=== PATIENT | female | born 1950 | race Caucasian/White ===

== ENCOUNTER → 2017-10-28 | Outpatient (CLI) | payer OTHER ==
[~2017-10-28] VITALS: Ht 170.2 cm; Wt 90.7 kg
[~2017-10-28] MED LIST: ASPIR 8181 MG PO; SYNTHROID175 MCG PO; TOPROL XL25 MG PO; ZESTORETIC 20-1 EACH PO
--- NOTE | ~2017-10-28 | EKG ---
[address] [address] [email or web address] [address] ELECTROCARDIOGRAM REPORT Name: DAMIÁN TSANG Room #: [facility] [id number] Admission: 10/28/17 Attend Phys: Bjorn Velazquez MD, Discharge: Date of : 48 Report #: [id number] THIS REPORT FOR: //name// [facility] Test Date: 2017-10-28 Test Time: 07:28:13 Pat Name: DAMIÁN TSANG Department: Room: Gender: F Faith Healer: Sebas BOLDEN : 1950 Requested By: Bjorn Velazquez Order Number: [id number] MD: Wilmar Liu Measurements Intervals [place] Rate: 62 P: 68 ME: 167 QRS: 19 QRSD: 85 T: 65 QT: 436 QTc: 443 Interpretive Statements Sinus rhythm RSR' in V1 or V2, right VCD or RVH Minimal ST elevation, multiple leads No previous ECG available for comparison Electronically Signed On 10-28-2017 8:49:37 MANAGER GENERATION by Wilmar Liu [email or web address] <ELECTRONICALLY SIGNED> By: Wilmar Liu MD, [facility] 10/28/17 0849 7 7 Wilmar Liu MD, [facility] /EPI
--- NOTE | ~2017-10-28 | CATHLAB ---
[facility] [address] [place] [address] INVASIVE PROCEDURE REPORT Name: TRINHJALILCesar DUFFY Room #: REG Sary#: [id number] Admission: 10/28/17 Attend Phys: Bjorn Velazquez, Discharge: Date of : 48 Date of Service: 10/28/17 183 Report #: [id number] THIS REPORT FOR: //name// APPROVED REPORT Patient Details Patient Status: Out-Patient Room #: The patient is a 67 year-old female Event Personnel Bjorn Velazquez Motor And Generator Assembler, Rosanne Nelson, Maria Victoria Graham RTR, Garrett Diaz Ceola RN RN, Tracey Goddard RN receptionist doctor's office Performed Art Access - R femoral artery* Montrell Access - R femoral vein 87705 Initial Mod Sed Same Phys/QHP Gr5y 700195 Right and Left Heart Cath w/or w/o Coronarie [id number] RLHC Aortogram Abdominal Peripheral Angio [id number] Renal Bilateral Peripheral Angiography 8431004 CVRENALBIL Hemostasis w/ Mynx Procedure Narrative The patient was brought electively to the Cardiac Catheterization Laboratory and was prepped and draped in a sterile manner. The Right Groin^ was infiltrated with 1% Lidocaine subcutaneous anesthesia. A PINNACLE 6FR Sheath #[id number] sheath was inserted into the RFA^. Coronary angiography was performed using coronary diagnostic catheters. The right coronary system was accessed and visualized with a JR 4 catheter. The left coronary system was accessed and visualized with a JL 3 catheter. The left ventricle was accessed and visualized with a Pigtail catheter. Left ventriculogram was performed in PRICE projection. An aortogram of the abdominal aorta was performed. Pre-demployment femoral angiogram was performed . Closure device was deployed with a 6 Fr Mynx. The patient tolerated the procedure well and there were no complications associated with the procedure. There was no hematoma. Intraoperative Conscious Sedation Sedation start time: 09:03 Case end Time: 09:28 Fentanyl 75 mcg Versed 1 mg Fluoro Time: 4.09 minutes Dose: DAP 5878.90 cGycm2 511 mGy Contrast Type and Amount: Visipaque 100 ml [address] [place] [address] INVASIVE PROCEDURE REPORT Name: JALIL TSANG Room #: REG Sary#: [id number] Admission: 10/28/17 Attend Phys: Bjorn Velazquez, Discharge: Date of : 48 Date of Service: 10/28/17 1835 Report #: [id number] Hemodynamics The right atrial mean pressure is 10 mmHg. The pulmonary artery pressure is 37/20 mmHg with a mean of 27 mmHg. The mean pulmonary capillary wedge pressure is 20 mmHg. The aortic pressure is 186/87 mmHg with a mean of 127 mmHg. The left ventricular pressure is 177/12 mmHg with a mean of mmHg. The left ventricular end diastolic pressure is 27 mmHg. The cardiac output using thermo method is 4.85 L/min. Conclusion #1 normal left ventricular size and systolic function #2 left main free of disease giving rise to LAD and circumflex #3 LAD with mild plaquing mild diffuse disease wraps around the apex. No occlusive disease is noted #4 circumflex OM is nondominant with mild disease relatively small-caliber #5 dominant right coronary artery with mild diffuse disease giving rise to PDA and NEIL no occlusive disease #6 selective angiography of the left renal artery is a 40-50% ostial narrowing #7 right renal artery mild disease Recommendations and plan continue aggressive risk factor modification no coronary intervention indicated. Small infrarenal aortic aneurysm we'll evaluate noninvasively ultrasound. Mild plaquing in the three-vessel coronary arteries no occlusive disease No lifting for 48 hours no line tub Jacuzzi or Horton for a week. Follow-up with Dr. Dickinson <ELECTRONICALLY SIGNED> By: Bjorn Velazquez MD, FACC 10/28/171834 34 34 Bjorn Velazquez MD, FACC /INF
[2017-10-28 07:12] LABS: HEMATOCRIT 42.7 % (37.0-47.0); HEMOGLOBIN 14.7 gm/dL (12.0-15.0); MCH 31.7 pg (26.0-34.0); MCHC 34.5 g/dL (28.0-37.0); MCV 91.9 fL (80.0-100.0); RBC 4.65 mil/uL (4.20-5.00); RDW 13.7 % (10.5-14.5); WBC 13.7 thou/uL (4.0-11.0)
[2017-10-28 07:20] LABS: CALCIUM 9.4 mg/dL (8.5-10.1); POTASSIUM 4.3 mmol/L (3.5-5.1)
[2017-10-28 07:33] VITALS: BP 145/66
== END | disposition home or self-care (01) ==
LOC: CATH 06:36
PROVIDERS: Internal Medicine Cardiovascular Disease
DX: I25.10 Atherosclerotic heart disease of native coronary artery without angina pectoris (principal); I77.89 Other specified disorders of arteries and arterioles